=== PATIENT | male | born 1970 | race Caucasian/White ===

== ENCOUNTER 2016-11-16 16:00 | Inpatient (IN) | payer BC ==
[2016-11-16] MEDS ORDERED: SODIUM CHLORIDE 0.9% 1,000 ML IV STA ×2 (16:22→18:06)
[2016-11-16] MEDS ORDERED: DILTIAZEM 125 MG in SODIUM CHLORIDE 0.9% 100 ML IV STA (16:25)
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
[2016-11-16 16:43] LABS: Basophils % (A) 0 %; CH 32.2; CHCM 36.3; Eosinophils # (A) 0.2 k/uL (0-0.7); Eosinophils % (A) 1 %; HCT 44.5 % (39.0-53.0); HDW 2.73; HGB 15.5 gm/dL (13.0-17.5); Luc # (Auto) 0.13; Luc % (Auto) 1; Lymphocytes # (A) 1.5 k/uL (1.0-4.8); Lymphocytes % (A) 14 %; MCH 31.1 pg (25.0-35.0); MCHC 34.9 g/dL (31.0-37.0); MCV 89.2 fL (80.0-100.0); Mean Platelet Volume 7.1; Monocytes # (A) 0.5 k/uL (0-1.0); Monocytes % (A) 5 %; Neutrophils # (A) 8.2 k/uL (1.3-7.7); Neutrophils % (A) 78 %; RDW 14.2 % (11.5-15.5); WBC 10.5 k/uL (3.8-10.6)
[2016-11-16 16:53] LABS: ALT 43 U/L (21-72); AST 33 U/L (17-59); Alcohol <10 mg/dL; Alkaline Phosphatase 63 U/L (38-126); Anion Gap 12 mmol/L; Blood Urea Nitrogen 20 mg/dL (9-20); Calcium 8.7 mg/dL (8.4-10.2); Carbon Dioxide 19 mmol/L (22-30); Chloride 108 mmol/L (98-107); Glucose 87 mg/dL (74-99); Magnesium 1.8 mg/dL (1.6-2.3); Non-African American GFR(MDRD) >60 (>60 ml/min/1.73 sqM); Potassium 3.8 mmol/L (3.5-5.1); Sodium 139 mmol/L (137-145); Total Bilirubin 0.6 mg/dL (0.2-1.3); Total Protein 6.9 g/dL (6.3-8.2)
[2016-11-16 17:04] LABS: Partial Thromboplastin Time 27.5 sec (22.0-30.0); Prothrombin Time 10.1 sec (9.0-12.0)
[2016-11-16 17:11] LABS: Creatine Kinase 553 U/L (55-170)
[2016-11-16] MEDS ORDERED: DILTIAZEM 5 MG/ML 5 ML VIAL IVP STA (17:15)
[2016-11-16 17:24] LABS: Troponin I <0.012 ng/mL (0.000-0.034)
[2016-11-16] MEDS ORDERED: MAGNESIUM SULFATE-D5W PMX 1 GM in DEXTROSE/WATER 1 100ML.BAG IVPB ONE (17:25)
[2016-11-16 17:33] LABS: Creatine Kinase MB 2.7 ng/mL (0.0-2.4)
[2016-11-16] MEDS ORDERED: NALOXONE 0.4 MG/ML 1 ML VIAL IV PRN (18:01)
[2016-11-16] MEDS ORDERED: HEPARIN SODIUM,PORCINE 5,000 UNIT/ML 1 ML VIAL IV ONE (18:04)
[2016-11-16] MEDS ORDERED: NITROGLYCERIN SL TABS 0.4 MG TAB SUBLINGUAL PRN (18:06)
--- NOTE | 2016-11-16 18:10 | XR ---
EXAMINATION TYPE: XR chest 2V DATE OF EXAM: 11/16/2016 COMPARISON: NONE HISTORY: Rapid arrhythmia. TECHNIQUE: Frontal and lateral views of the chest are obtained. FINDINGS: There is no pneumothorax or pleural effusion. There could be a small right lower lobe airs pace opacity. The cardiac silhouette size is within normal limits. The osseous structures are intac t. IMPRESSION: There could be a small right lower lobe airspace opacity. Correlation with physical exam for pneumonia is recommended.
[2016-11-16] MEDS: HEPARIN SODIUM,PORCINE/D5W PMX 25,000 UNIT in DEXTROSE/WATER 1 500ML.BAG IV SCH (18:39)
[2016-11-16] MEDS: 0.9% NACL WITH KCL 20 MEQ/L 1,000 ML IV SCH (20:14)
[2016-11-17] MEDS: HEPARIN SODIUM,PORCINE 5,000 UNIT/ML 1 ML VIAL IV PRN ×2 (00:26→06:33)
--- NOTE | 2016-11-17 10:54 | P.CRDCN ---
History of Present Illness Consult date: 11/17/16 History of present illness: This is a 46-year-old gentleman with history of of borderline hypertension but was never treated, started having palpitation and dizziness at around 10:00 yesterday while he was walking in his backyard. Apparently symptoms resolved partially when he sat down, but recurred later on. Patient was brought to the emergency room. He was also sweating. He was found to be in atrial fibrillation with a rapid ventricular response. Patient was treated with IV heparin and also IV Cardizem. It appears that patient converted to sinus rhyth , last night. Since then patient has been stable. He patient denied any chest pain. No evidence of any pedal swelling. Patient never had previous episodes like this. Denies any diabetes, previous myocardial infarction or strokes Review of Systems REVIEW OF SYSTEMS: CONSTITUTIONAL:. Patient is doing well. No complaints of fever or chills EYES: Denies diplopia, blurring of vision EARS, NOSE, MOUTH, THROAT: Denies headaches, denies sore throat. CARDIOVASCULAR: As per HPI RESPIRATORY: Denies shortness of breath, denies cough. GASTROINTESTINAL: Denies change in appetite, denies abdominal pain, denies diarrhea GENITOURINARY: Denies hematuria, denies infections. MUSKULOSKELETAL: Denies pain, denies swelling. Denies any cramps or claudication INTEGUMENTARY: Denies rash, denies eczema. NEUROLOGICAL: Denies focal weakness, or visual disturbance. Denies any dizziness or syncope PSYCHIATRIC: Denies anxiety, denies depression. HEMATOLOGIC/LYMPHATIC: Denies any bleeding, denies enlarged lymph nodes. Past Medical History Past Medical History: No Reported History History of Any Multi-Drug Resistant Organisms: None Reported Additional Past Surgical History / Comment(s): left knee Past Anesthesia/Blood Transfusion Reactions: No Reported Reaction Past Psychological History: No Psychological Hx Reported Smoking Status: Current some day smoker Past Alcohol Use History: Occasional Additional Past Alcohol Use History / Comment(s): 6 beers a day, more if its a weekend. He states he will sometimes do some shots of liquor. Past Drug Use History: None Reported - Past Family History Mother Family Medical History: Cancer Additional Family Medical History / Comment(s): Lung Medications and Allergies Home Medications Medication Instructions Recorded Confirmed Type No Known Home Medications [No 11/16/16 11/16/16 History Known Home Medications] Allergies Allergy/AdvReac Type Severity Reaction Status Date / Time No Known Allergies Allergy Verified 11/16/16 16:09 Physical Exam Vitals: Vital Signs Temp Pulse Pulse Resp BP BP Pulse Ox 11/17/16 08:00 97.9 F 60 18 134/72 97 11/17/16 04:00 96 F L 58 L 16 104/54 97 11/17/16 01:09 45 L 11/17/16 00:00 96.8 F L 88 16 125/83 97 11/16/16 20:00 97 F L 132 H 18 157/80 100 11/16/16 18:30 131 H 18 132/67 98 11/16/16 17:56 125 H 18 134/73 99 11/16/16 16:40 156 H 18 161/71 98 11/16/16 16:07 98.4 F 178 H 18 170/82 99 Intake and Output 11/16/16 11/17/16 11/17/16 22:59 06:59 14:59 Intake Total 368.583 795.925 240 Balance 368.583 795.925 240 Intake: IV 360 525 0.9% NaCl with KCl 20 Meq 200 400 /l 1,000 ml @ 50 mls/hr IV .Q20H ERIN Rx#: [id number] Heparin Sodium,Porcine/ 160 125 D5w Pmx 25,000 unit In Dextrose/Water 1 500ml. bag @ 10.861 UNITS/KG/HR 20 mls/hr IV .Q24H ERIN Rx #:[id number] Intake, IV Titration 8.583 270.925 Amount Diltiazem 125 mg In 8.583 Sodium Chloride 0.9% 100 ml @ 5 MG/HR 5 mls/hr IV .Q24H STA Rx#:[id number] Heparin Sodium,Porcine/ 270.925 D5w Pmx 25,000 unit In Dextrose/Water 1 500ml. bag @ 10.861 UNITS/KG/HR 20 mls/hr IV .Q24H ERIN Rx #:[id number] Oral 240 Other: Weight 92.079 kg 92.8 kg GENERAL EXAM: Patient is alert and oriented and doesn't appear to be in any acute distress HEENT: Normocephalic. Normal reaction of pupils, equal size, normal range of extraocular motion. No erythema or exudates in the throat. NECK: No masses, no nuchal rigidity. CHEST: No chest wall deformity. LUNGS: Equal air entry with no crackles or wheeze. HEART: S1 and S2 normal with no audible mumurs or gallops. Regular rhythm, femorals equal on both sides.. ABDOMEN: No hepatosplenomegaly, normal bowel sounds, no guarding or rigidity. SKIN: No rashes CENTRAL NERVOUS SYSTEM: No focal deficits. EXTREMITIES: No cyanosis, clubbing or edema. Results 11/16/16 14:30 11/16/16 14:30 Cardiac Enzymes 11/16/16 11/16/16 Range/Units 14:30 14:30 AST 33 (17-59) U/L CK-MB (CK-2) 2.7 H* (0.0-2.4) ng/mL Troponin I <0.012 (0.000-0.034) ng/mL Coagulation 11/16/16 11/16/16 11/17/16 Range/Units 14:30 23:37 05:41 PT 10.1 (9.0-12.0) sec APTT 27.5 29.4 43.2 H (22.0-30.0) sec CBC 11/16/16 Range/Units 14:30 WBC 10.5 (3.8-10.6) k/uL RBC 5.00 (4.30-5.90) m/uL Hgb 15.5 (13.0-17.5) gm/dL Hct 44.5 (39.0-53.0) % Plt Count 254 (150-450) k/uL Comprehensive Metabolic Panel 11/16/16 Range/Units 14:30 Sodium 139 (137-145) mmol/L Potassium 3.8 (3.5-5.1) mmol/L Chloride 108 H (98-107) mmol/L Carbon Dioxide 19 L (22-30) mmol/L BUN 20 (9-20) mg/dL Creatinine 1.18 (0.66-1.25) mg/dL Glucose 87 (74-99) mg/dL Calcium 8.7 (8.4-10.2) mg/dL AST 33 (17-59) U/L ALT 43 (21-72) U/L Alkaline Phosphatase 63 (38-126) U/L Total Protein 6.9 (6.3-8.2) g/dL Albumin 4.1 (3.5-5.0) g/dL Current Medications Generic Name Dose Route Start Last Admin Trade Name [place] PRN Reason Stop Dose Admin Heparin Sodium (Porcine) 0 unit 11/17/16 00:11 11/17/16 06:33 Heparin IV 2,000 unit PER PROTOCOL PRN Administration Low PTT Protocol Diltiazem HCl 125 mg/ Sodium 125 mls @ 5 mls/hr 11/16/16 16:25 11/16/16 18:20 Chloride IV 11/17/16 16:24 10 mg/hr .Q24H STA 10 mls/hr Protocol Titration 5 MG/HR Potassium Chloride/Sodium Chloride 1,000 mls @ 50 mls/hr 11/16/16 18:15 11/16 20:14 Ns-Kcl 20 Meq/L Iv Solution IV 50 mls/hr .Q20H ERIN Administration Heparin Sodium/Dextrose 25,000 500 mls @ 20 mls/hr 11/16/16 18:15 11/17/16 06 :28 unit/ IV Solution IV 15.861 units/kg/hr .Q24H ERIN 29.2 mls/hr Protocol Titration 10.861 UNITS/KG/HR Metoprolol Tartrate 12.5 mg 11/17/16 11:00 Lopressor PO BID ERIN Naloxone HCl 0.2 mg 11/16/16 18:01 Narcan IV Q2M PRN Opioid Reversal Nitroglycerin 0.4 mg 11/16/16 18:06 Nitrostat SUBLINGUAL Q5M PRN Chest Pain Intake and Output 11/16/16 11/17/16 11/17/16 22:59 06:59 14:59 Intake Total 368.583 795.925 240 Balance 368.583 795.925 240 Intake: IV 360 525 0.9% NaCl with KCl 20 Meq 200 400 /l 1,000 ml @ 50 mls/hr IV .Q20H ERIN Rx#: [id number] Heparin Sodium,Porcine/ 160 125 D5w Pmx 25,000 unit In Dextrose/Water 1 500ml. bag @ 10.861 UNITS/KG/HR 20 mls/hr IV .Q24H ERIN Rx #:[id number] Intake, IV Titration 8.583 270.925 Amount Diltiazem 125 mg In 8.583 Sodium Chloride 0.9% 100 ml @ 5 MG/HR 5 mls/hr IV .Q24H STA Rx#:[id number] Heparin Sodium,Porcine/ 270.925 D5w Pmx 25,000 unit In Dextrose/Water 1 500ml. bag @ 10.861 UNITS/KG/HR 20 mls/hr IV .Q24H ERIN Rx #:[id number] Oral 240 Other: Weight 92.079 kg 92.8 kg 11/16/16 14:30 11/16/16 14:30 EKG Interpretations (text) Initial EKG showed A. fib with a rapid ventricular response. Sinus rhythm Assessment and Plan (1) Persistent atrial fibrillation Status: Acute (2) Borderline hypertension Status: Acute Plan: I'll start him on small dose of beta romeo. We will get an echocardiogram tomorrow. If echo looks normal, we'll can discontinue heparin. I will start him on baby aspirin.
[2016-11-17] MEDS: METOPROLOL TARTRATE 12.5 MG TAB PO SCH ×2 (11:30→20:07)
--- NOTE | 2016-11-17 14:08 | P.HPIM ---
History of Present Illness H&P Date: 11/17/16 Chief Complaint: Palpitations and syncope This is a 46-year-old gentleman with history of borderline hypertension comes in the hospital with syncope and palpitations. Patient was noted to be in new onset atrial fibrillation with rapid ventricular rate Patient apparently has been working outside in the sun for the last 7 days and has not been hydrating himself appropriately Patient states that his alcohol intake over the last few days have been unusually high patient has been preparing for this Patient denies having any associated chest pain previous history of palpitations. Patient does not take any medications at this time At the time of my evaluation patient denies having any headaches blurry vision nausea vomiting history of any bleeding disorders Past Medical History Past Medical History: No Reported History History of Any Multi-Drug Resistant Organisms: None Reported Additional Past Surgical History / Comment(s): left knee Past Anesthesia/Blood Transfusion Reactions: No Reported Reaction Past Psychological History: No Psychological Hx Reported Smoking Status: Current some day smoker Past Alcohol Use History: Occasional Additional Past Alcohol Use History / Comment(s): 6 beers a day, more if its a weekend. He states he will sometimes do some shots of liquor. Past Drug Use History: None Reported - Past Family History Mother Family Medical History: Cancer Additional Family Medical History / Comment(s): Lung Medications and Allergies Home Medications Medication Instructions Recorded Confirmed Type No Known Home Medications [No 11/16/16 11/16/16 History Known Home Medications] Allergies Allergy/AdvReac Type Severity Reaction Status Date / Time No Known Allergies Allergy Verified 11/16/16 16:09 Physical Exam Vitals: Vital Signs Temp Pulse Pulse Resp BP BP Pulse Ox 11/17/16 12:00 98.3 F 58 L 16 130/70 98 11/17/16 08:00 97.9 F 60 18 134/72 97 11/17/16 04:00 96 F L 58 L 16 104/54 97 11/17/16 01:09 45 L 11/17/16 00:00 96.8 F L 88 16 125/83 97 11/16/16 20:00 97 F L 132 H 18 157/80 100 11/16/16 18:30 131 H 18 132/67 98 11/16/16 17:56 125 H 18 134/73 99 11/16/16 16:40 156 H 18 161/71 98 11/16/16 16:07 98.4 F 178 H 18 170/82 99 Intake and Output 11/16/16 11/17/16 11/17/16 22:59 06:59 14:59 Intake Total 368.583 795.925 758.607 Balance 368.583 795.925 758.607 Intake: IV 360 525 0.9% NaCl with KCl 20 Meq 200 400 /l 1,000 ml @ 50 mls/hr IV .Q20H ERIN Rx#: [id number] Heparin Sodium,Porcine/ 160 125 D5w Pmx 25,000 unit In Dextrose/Water 1 500ml. bag @ 10.861 UNITS/KG/HR 20 mls/hr IV .Q24H ERIN Rx #:[id number] Intake, IV Titration 8.583 270.925 178.607 Amount Diltiazem 125 mg In 8.583 Sodium Chloride 0.9% 100 ml @ 5 MG/HR 5 mls/hr IV .Q24H STA Rx#:[id number] Heparin Sodium,Porcine/ 270.925 178.607 D5w Pmx 25,000 unit In Dextrose/Water 1 500ml. bag @ 10.861 UNITS/KG/HR 20 mls/hr IV .Q24H ERIN Rx #:[id number] Oral 580 Other: Weight 92.079 kg 92.8 kg Physical exam Gen. appearance oriented 3 in no distress Neck is supple no JVD Lungs good air entry clear to auscultation no rhonchi or wheezing Heart S1-S2 heard regular rate and rhythm no murmurs appreciated Abdomen is soft nontender no organomegaly bowel sounds are intact Neurologically cranial nerves II-12 grossly intact no focal motor or sensory deficits noted Skin no abnormalities appreciated Results CBC & Chem 7: 11/16/16 14:30 11/16/16 14:30 Labs: Abnormal Lab Results - Last 24 Hours (Table) 11/16/16 11/16/16 11/16/16 Range/Units 14:30 14:30 14:30 Neutrophils # 8.2 H (1.3-7.7) k/uL APTT (22.0-30.0) sec Chloride 108 H (98-107) mmol/L Carbon Dioxide 19 L (22-30) mmol/L Total Creatine Kinase 553 H (55-170) U/L CK-MB (CK-2) 2.7 H* (0.0-2.4) ng/mL 11/17/16 11/17/16 Range/Units 05:41 12:11 Neutrophils # (1.3-7.7) k/uL APTT 43.2 H 43.9 H (22.0-30.0) sec Chloride (98-107) mmol/L Carbon Dioxide (22-30) mmol/L Total Creatine Kinase (55-170) U/L CK-MB (CK-2) (0.0-2.4) ng/mL Thrombosis Risk Factor Assmnt - Choose All That Apply Any of the Below Risk Factors Present?: Yes Each Factor Represents 1 point: Age 41-60 years, Obesity (BMI >25) Thrombosis Risk Factor Assessment Total Risk Factor Score: 2 Thrombosis Risk Factor Assessment Level: Low Risk Assessment and Plan Plan: new onset atrial fib relation with rapid ventricular rate present onset #2 borderline hypertension Plan Risk stratification with [facility] echocardiogram tomorrow Heparinization at this time Cardiology recommendations are noted Beta romeo for rate control
[2016-11-17] MEDS: 0.9% NACL WITH KCL 20 MEQ/L 1,000 ML IV SCH ×2 (16:36→20:09)
[2016-11-17] MEDS: HEPARIN SODIUM,PORCINE/D5W PMX 25,000 UNIT in DEXTROSE/WATER 1 500ML.BAG IV SCH (16:38)
[2016-11-18] MEDS: HEPARIN SODIUM,PORCINE/D5W PMX 25,000 UNIT in DEXTROSE/WATER 1 500ML.BAG IV SCH (02:14)
[2016-11-18 03:11] VITALS: RESP 18
[2016-11-18] MEDS: METOPROLOL TARTRATE 12.5 MG TAB PO SCH (07:55)
--- NOTE | 2016-11-18 10:41 | ECHOF ---
Referral Reason:Chest pain and cardiomyopathy MEASUREMENTS -------- HEIGHT: 177.8 cm WEIGHT: 93.9 kg BP: 128/82 RVIDd: 3.3 cm (< 3.3) IVSd: 1.1 cm (0.6 - 1.1) LVIDd: 5.0 cm (3.9 - 5.3) LVPWd: 1.1 cm (0.6 - 1.1) IVSs: 1.5 cm LVIDs: 3.2 cm LVPWs: 1.4 cm LA Diam: 3.6 cm (2.7 - 3.8) LAESV Index (A-L): 23.22 ml/m Ao Diam: 2.6 cm (2.0 - 3.7) AV Cusp: 2.0 cm (1.5 - 2.6) MV EXCURSION: 10.738 mm (> 18.000) MV EF SLOPE: 71 mm/s (70 - 150) EPSS: 0.6 cm MV E Addison: 1.15 m/s MV DecT: 198 ms MV A Addison: 1.00 m/s MV E/A Ratio: 1.15 FINDINGS -------- Sinus rhythm. This was a technically good study. The left ventricular size is normal. There is borderline concentric left ventricular hypertrophy. Overall left ventricular systolic function is normal with, an EF between 60 - 65 %. The right ventricle is mildly enlarged. Normal LA size by volume 22+/-6 ml/m2. The right atrium is normal in size. The aortic valve is trileaflet, and appears structurally normal. No aortic stenosis or regurgitation. There is trace mitral regurgitation. Trace tricuspid regurgitation present. The pulmonic valve was not well visualized. The aortic root size is normal. Normal inferior vena cava with normal inspiratory collapse consistent with estimated right atrial pressure of 5 mmHg. There is no pericardial effusion. CONCLUSIONS -------- 1. Sinus rhythm. 2. Trace tricuspid regurgitation present. 3. The pulmonic valve was not well visualized. 4. The aortic root size is normal. 5. Normal inferior vena cava with normal inspiratory collapse consistent with estimated right atrial pressure of 5 mmHg. 6. There is no pericardial effusion. 7. This was a technically good study. 8. The left ventricular size is normal. 9. There is borderline concentric left ventricular hypertrophy. 10. Overall left ventricular systolic function is normal with, an EF between 60 - 65 %. 11. The right ventricle is mildly enlarged. 12. Normal LA size by volume 22+/-6 ml/m2. 13. The aortic valve is trileaflet, and appears structurally normal. No aortic stenosis or regurgitation. 14. There is trace mitral regurgitation. [employer] SUPERVISOR: Melania Potter RDCS
[2016-11-18 11:29] VITALS: BP 119/72; PULSE 59; TEMP 97.9
--- NOTE | 2016-11-18 11:29 | P.DS ---
Providers Date of admission: 11/16/16 18:02 Attending physician: Yosef Hannon Consults: 11/16/16 18:03 Consult Physician Routine Consulting Provider: Thalia Weiss Consult Reason/Comments: Rapid atrial fibrillation Do you want consulting provider notified?: Yes Primary care physician: Physician Nonstaff Hospital Course: This is a 46-year-old gentleman with history of borderline hypertension comes in the hospital with syncope and palpitations. Patient was noted to be in new onset atrial fibrillation with rapid ventricular rate Patient apparently has been working outside in the sun for the last 7 days and has not been hydrating himself appropriately Patient states that his alcohol intake over the last few days have been unusually high patient has been preparing for this Patient denies having any associated chest pain previous history of palpitations. Patient does not take any medications at this time At the time of my evaluation patient denies having any headaches blurry vision nausea vomiting history of any bleeding disorders 11/18/2001 Patient is doing well Denies having a palpitation dizziness nausea vomiting diarrhea chest pain Physical exam Gen. appearance oriented 3 in no distress Neck is supple no JVD Lungs good air entry clear to auscultation no rhonchi or wheezing Heart S1-S2 heard regular rate and rhythm no murmurs appreciated Abdomen is soft nontender no organomegaly bowel sounds are intact Neurologically cranial nerves II-12 grossly intact no focal motor or sensory deficits noted Skin no abnormalities appreciated Assessment and Plan Plan: new onset atrial fib relation with rapid ventricular rate present onset #2 Pre HTN Plan Risk stratification with CHADSVASC 0 or 1 if we count HTN echo shows diastolic dysfunction stroke prevention Aspirin 325mg dialy dc home to follow up with Dr Forbes Patient Condition at Discharge: Stable Plan - Discharge Summary New Discharge Prescriptions: New Aspirin 325 mg PO DAILY #30 tab Metoprolol Tartrate [Lopressor] 12.5 mg PO BID #60 tab Discharge Medication List Aspirin 325 mg PO DAILY #30 tab 11/18/16 [Rx] Metoprolol Tartrate [Lopressor] 12.5 mg PO BID #60 tab 11/18/16 [Rx] Follow up Appointment(s)/Referral(s): Nonstaff,Physician [Primary Care Provider] - 1-2 days Thalia Weiss MD [STAFF PHYSICIAN] - 12/06/16 11:15 am Patient Instructions/Handouts: Atrial Fibrillation (DC) Discharge Disposition: HOME SELF-CARE
--- NOTE | 2016-11-18 12:31 | P.PN ---
Subjective Principal diagnosis: Dizziness This is a 46-year-old gentleman with history of of borderline hypertension but was never treated, started having palpitation and dizziness at around 10:00 yesterday while he was walking in his backyard. Apparently symptoms resolved partially when he sat down, but recurred later on. Patient was brought to the emergency room. He was also sweating. He was found to be in atrial fibrillation with a rapid ventricular response. Patient was treated with IV heparin and also IV Cardizem. Patient converted to normal sinus rhythm and remains in normal sinus rhythm this morning. Since then patient has been stable. He patient denied any chest pain. No evidence of any pedal swelling. Patient never had previous episodes like this. Denies any diabetes, previous myocardial infarction or strokes. Echocardiogram with Doppler study was performed which revealed normal left ventricular systolic function. Objective - Vital Signs Vital signs: Vital Signs Temp 97.9 F 11/18/16 11:29 Pulse 59 L 11/18/16 11:29 Resp 18 11/18/16 11:29 BP 119/72 11/18/16 11:29 Pulse Ox 98 11/18/16 11:29 Intake & Output 11/17/16 11/18/16 11/18/16 18:59 06:59 18:59 Intake Total 9748.050 8676.685 355 Output Total 500 Balance 835.235 2795.685 355 Weight 94.3 kg Intake: IV 700 0.9% NaCl with KCl 20 Meq 540 /l 1,000 ml @ 50 mls/hr IV .Q20H ERIN Rx#: [id number] Heparin Sodium,Porcine/ 160 D5w Pmx 25,000 unit In Dextrose/Water 1 500ml. bag @ 10.861 UNITS/KG/HR 20 mls/hr IV .Q24H ERIN Rx #:[id number] Intake, IV Titration 229.075 338.685 Amount Heparin Sodium,Porcine/ 229.075 338.685 D5w Pmx 25,000 unit In Dextrose/Water 1 500ml. bag @ 10.861 UNITS/KG/HR 20 mls/hr IV .Q24H ERIN Rx #:[id number] Oral 820 920 355 Output: Urine 500 Other: Voiding Method Toilet # Voids 2 - Exam PHYSICAL EXAMINATION: HEENT: Head is atraumatic, normocephalic. Pupils equal, round. Neck is supple. There is no elevated jugular venous pressure. HEART EXAMINATION: Heart S1, S2 normal. No murmur or gallop heard. CHEST EXAMINATION: Lungs are clear to auscultation and precussion. No chest wall tenderness is noted on palpation or with deep breathing. ABDOMEN: Soft, nontender. Bowel sounds are heard. No organomegaly noted. EXTREMITIES: 2+ peripheral pulses with no evidence of peripheral edema and no calf tenderness noted. NEUROLOGIC patient is awake, alert and oriented -3. . - Labs CBC & Chem 7: 11/16/16 14:30 11/16/16 14:30 Labs: Abnormal Lab Results - Last 24 Hours (Table) 11/17/16 11/17/16 11/18/16 Range/Units 12:11 19:24 02:53 APTT 43.9 H 43.9 H 63.7 H (22.0-30.0) sec Assessment and Plan (1) Paroxysmal a-fib Status: Acute (2) EtOH dependence Status: Acute (3) Borderline hypertension Status: Acute Plan: From cardiology's perspective, patient may be able to be discharged home today. He will be discharged home on beta romeo along with aspirin. A follow-up appointment will be made with Dr. Weiss in the office in one to 2 weeks. He has been advised regarding the importance of EtOH cessation. DNP note has been reviewed, I agree with a documented findings and plan of care. Patient was seen and examined.
== END 2016-11-18 12:57 | disposition home or self-care (01) | DRG 310 ==
LOC: EC 16:00 → 6SEL 18:02
PROVIDERS: ADMIT Internal Medicine; ATTEND Internal Medicine
DX: I48.1 Persistent atrial fibrillation (principal); F10.20 Alcohol dependence, uncomplicated; I48.0 Paroxysmal atrial fibrillation; F17.200 Nicotine dependence, unspecified, uncomplicated; R03.0 Elevated blood-pressure reading, without diagnosis of hypertension
CPT/HCPCS: 36415; 71020; 80053; 80320; 82550; 82553; 83735; 84484; 85025; 85379; 85610; 85730; 93005; 93306; 96365; 96366; 96367; 96376; 99291

== ENCOUNTER 2017-04-29 18:14 | Emergency (ER) | payer BC ==
[2017-04-29 18:19] VITALS: TEMP 98.2
[2017-04-29] MEDS ORDERED: SODIUM CHLORIDE 0.9% 500 ML IV STA (19:54)
--- NOTE | 2017-04-29 20:06 | ED ---
General Adult HPI - General Chief complaint: Chest Pain Stated complaint: Chest pain Time Seen by Provider: 04/29/17 18:15 Source: patient, RN notes reviewed Mode of arrival: wheelchair Limitations: no limitations - History of Present Illness Initial comments: This is a 47-year-old male who presents emergency department stating that he has had a history of atrial fib. Patient states since he had the first time he was put on metoprolol twice a day at a dose of 12.5 mg. Patient states occasionally he gets a little flutter in her chest that lasts no more than 10- 15 seconds. Patient states today however he had an episode that lasted for a few minutes so he took it metoprolol early and then drove himself to the hospital. Patient states bedtime reactive hospital his symptoms had completely resolved. Patient states at no time was he short of breath have any difficulty breathing. Patient denies any lightheadedness or dizziness. Patient denies any diaphoretic episodes. Patient denies any nausea vomiting. Patient denies any extra intake of alcohol or caffeine today. Patient denies any abdominal pain. Patient denies any recent fever or chills. Patient denies any leg swelling or calf pain. - Related Data Home Medications Medication Instructions Recorded Confirmed Aspirin EC [Ecotrin] 325 mg PO DAILY 04/29/17 04/29/17 Metoprolol Tartrate [Lopressor] 12.5 mg PO BID 04/29/17 04/29/17 Allergies Allergy/AdvReac Type Severity Reaction Status Date / Time No Known Allergies Allergy Verified 04/29/17 20:02 Review of Systems ROS Statement: Those systems with pertinent positive or pertinent negative responses have been documented in the HPI. ROS Other: All systems not noted in ROS Statement are negative. Past Medical History Past Medical History: Atrial Fibrillation History of Any Multi-Drug Resistant Organisms: None Reported Past Surgical History: Orthopedic Surgery Additional Past Surgical History / Comment(s): left knee Past Anesthesia/Blood Transfusion Reactions: No Reported Reaction Past Psychological History: No Psychological Hx Reported Smoking Status: Current some day smoker Past Alcohol Use History: Occasional Past Drug Use History: None Reported - Past Family History Mother Family Medical History: Cancer Additional Family Medical History / Comment(s): Lung General Exam - General Exam Comments Initial Comments: GENERAL: Patient is well-developed and well-nourished. Patient is nontoxic and well- hydrated and is in mild distress. ENT: Neck is soft and supple. No significant lymphadenopathy is noted. Oropharynx is clear. Moist mucous membranes. Neck has full range of motion without eliciting any pain. EYES: The sclera were anicteric and conjunctiva were pink and moist. Extraocular movements were intact and pupils were equal round and reactive to light. Eyelids were unremarkable. PULMONARY: Unlabored respirations. Good breath sounds bilaterally. No audible rales rhonchi or wheezing was noted. CARDIOVASCULAR: There is a regular rate and rhythm without any murmurs gallops or rubs. ABDOMEN: Soft and nontender with normal bowel sounds. SKIN: Skin is clear with no lesions or rashes and otherwise unremarkable. NEUROLOGIC: Patient is alert and oriented x3. Cranial nerves II through XII are grossly intact. Motor and sensory are also intact. Normal speech, volume and content. Symmetrical smile. MUSCULOSKELETAL: Normal extremities with adequate strength and full range of motion. No lower extremity swelling or edema. No calf tenderness. LYMPHATICS: No significant lymphadenopathy is noted PSYCHIATRIC: Normal psychiatric evaluation. Normal interpersonal interactions appears functionally intact in deals appropriately with others. No signs of depression. No signs of anxiety Limitations: no limitations Course Vital Signs 04/29/17 18:16 Temperature 98.2 F Pulse Rate 78 Respiratory 18 Rate Blood Pressure 178/91 O2 Sat by Pulse 98 Oximetry Medical Decision Making - Medical Decision Making EKG shows normal sinus rhythm at 81 bpm IA interval is 136 QRS is 72 QT interval 360 QTC is 427. Patient's EKG shows no ST segment elevation or depression or T wave abnormalities are noted. Patient no symptoms well in the emergency department. - Lab Data Result diagrams: 04/29/17 20:00 04/29/17 20:00 Lab Results 04/29/17 04/29/17 04/29/17 Range/Units 20:00 20:00 20:00 WBC 9.3 (3.8-10.6) k/uL RBC 5.26 (4.30-5.90) m/uL Hgb 15.9 (13.0-17.5) gm/dL Hct 48.2 (39.0-53.0) % MCV 91.6 (80.0-100.0) fL MCH 30.3 (25.0-35.0) pg MCHC 33.0 (31.0-37.0) g/dL RDW 14.5 (11.5-15.5) % Plt Count 265 (150-450) k/uL Neutrophils % 58 % Lymphocytes % 32 % Monocytes % 5 % Eosinophils % 3 % Basophils % 1 % Neutrophils # 5.4 (1.3-7.7) k/uL Lymphocytes # 3.0 (1.0-4.8) k/uL Monocytes # 0.5 (0-1.0) k/uL Eosinophils # 0.3 (0-0.7) k/uL Basophils # 0.1 (0-0.2) k/uL PT (9.0-12.0) sec INR (<1.2) APTT (22.0-30.0) sec Sodium 143 (137-145) mmol/L Potassium 4.4 (3.5-5.1) mmol/L Chloride 104 (98-107) mmol/L Carbon Dioxide 26 (22-30) mmol/L Anion Gap 13 mmol/L BUN 24 H (9-20) mg/dL Creatinine 1.20 (0.66-1.25) mg/dL Est GFR (MDRD) Af Amer >60 (>60 ml/min/1.73 sqM) Est GFR (MDRD) Non-Af >60 (>60 ml/min/1.73 sqM) Glucose 104 H (74-99) mg/dL Calcium 9.7 (8.4-10.2) mg/dL Magnesium 2.0 (1.6-2.3) mg/dL Total Bilirubin 0.4 (0.2-1.3) mg/dL AST 37 (17-59) U/L ALT 55 (21-72) U/L Alkaline Phosphatase 61 (38-126) U/L Total Creatine Kinase 196 H (55-170) U/L CK-MB (CK-2) 1.1 (0.0-2.4) ng/mL CK-MB (CK-2) Rel Index 0.6 Troponin I 0.020 (0.000-0.034) ng/mL Total Protein 7.9 (6.3-8.2) g/dL Albumin 4.5 (3.5-5.0) g/dL TSH 3.790 (0.465-4.680) mIU/L 04/29/17 Range/Units 20:00 WBC (3.8-10.6) k/uL RBC (4.30-5.90) m/uL Hgb (13.0-17.5) gm/dL Hct (39.0-53.0) % MCV (80.0-100.0) fL MCH (25.0-35.0) pg MCHC (31.0-37.0) g/dL RDW (11.5-15.5) % Plt Count (150-450) k/uL Neutrophils % % Lymphocytes % % Monocytes % % Eosinophils % % Basophils % % Neutrophils # (1.3-7.7) k/uL Lymphocytes # (1.0-4.8) k/uL Monocytes # (0-1.0) k/uL Eosinophils # (0-0.7) k/uL Basophils # (0-0.2) k/uL PT 9.5 (9.0-12.0) sec INR 1.0 (<1.2) APTT 28.9 (22.0-30.0) sec Sodium (137-145) mmol/L Potassium (3.5-5.1) mmol/L Chloride (98-107) mmol/L Carbon Dioxide (22-30) mmol/L Anion Gap mmol/L BUN (9-20) mg/dL Creatinine (0.66-1.25) mg/dL Est GFR (MDRD) Af Amer (>60 ml/min/1.73 sqM) Est GFR (MDRD) Non-Af (>60 ml/min/1.73 sqM) Glucose (74-99) mg/dL Calcium (8.4-10.2) mg/dL Magnesium (1.6-2.3) mg/dL Total Bilirubin (0.2-1.3) mg/dL AST (17-59) U/L ALT (21-72) U/L Alkaline Phosphatase (38-126) U/L Total Creatine Kinase (55-170) U/L CK-MB (CK-2) (0.0-2.4) ng/mL CK-MB (CK-2) Rel Index Troponin I (0.000-0.034) ng/mL Total Protein (6.3-8.2) g/dL Albumin (3.5-5.0) g/dL TSH (0.465-4.680) mIU/L Disposition Clinical Impression: Palpitations Disposition: HOME SELF-CARE Condition: Good Additional Instructions: Patient should follow-up with his grants specialist. In the meantime patient should take an extra pill midday until he follows up. Referrals: Nonstaff,Physician [REFERRING] - 1-2 days Time of Disposition: 21:10
[2017-04-29 20:28] LABS: Basophils # (A) 0.1 k/uL (0-0.2); Basophils % (A) 1 %; Eosinophils # (A) 0.3 k/uL (0-0.7); Eosinophils % (A) 3 %; HCT 48.2 % (39.0-53.0); HGB 15.9 gm/dL (13.0-17.5); Lymphocytes % (A) 32 %; MCH 30.3 pg (25.0-35.0); MCV 91.6 fL (80.0-100.0); Mean Platelet Volume 7.1; Monocytes # (A) 0.5 k/uL (0-1.0); Monocytes % (A) 5 %; Neutrophils # (A) 5.4 k/uL (1.3-7.7); Neutrophils % (A) 58 %; Platelet Count 265 k/uL (150-450); RBC 5.26 m/uL (4.30-5.90); RDW 14.5 % (11.5-15.5); WBC 9.3 k/uL (3.8-10.6)
[2017-04-29 20:31] LABS: ALT 55 U/L (21-72); AST 37 U/L (17-59); Albumin 4.5 g/dL (3.5-5.0); Alkaline Phosphatase 61 U/L (38-126); Anion Gap 13 mmol/L; Blood Urea Nitrogen 24 mg/dL (9-20); Calcium 9.7 mg/dL (8.4-10.2); Carbon Dioxide 26 mmol/L (22-30); Chloride 104 mmol/L (98-107); Glucose 104 mg/dL (74-99); Potassium 4.4 mmol/L (3.5-5.1); Sodium 143 mmol/L (137-145); Total Bilirubin 0.4 mg/dL (0.2-1.3); Total Protein 7.9 g/dL (6.3-8.2)
[2017-04-29 20:32] LABS: Partial Thromboplastin Time 28.9 sec (22.0-30.0); Prothrombin Time 9.5 sec (9.0-12.0)
--- NOTE | 2017-04-29 20:33 | XR ---
EXAMINATION: XR chest 2V DATE AND TIME: 04/29/2017 8:12 PM ORDERING PROVIDER: Mir Monae MD CLINICAL INDICATION: dysrhythmia TECHNIQUE: PA and lateral COMPARISON: 11/16/2016 DESCRIPTION: EKG leads. The lungs are clear. The pleural spaces are negative. The cardiac silhouette is not enlarged. The skeletal structures are intact without focal findings. The soft tissues are unre markable. IMPRESSION: NO ACUTE PROCESS.
[2017-04-29 20:48] LABS: Creatine Kinase MB 1.1 ng/mL (0.0-2.4); Troponin I 0.02 ng/mL (0.000-0.034)
[2017-04-29 21:33] VITALS: RESP 16
[2017-04-29 21:35] VITALS: BP 134/78; PULSE 66
== END 2017-04-29 21:30 | disposition home or self-care (01) ==
LOC: EC 18:14
DX: R00.2 Palpitations (principal); R07.9 Chest pain, unspecified; I48.91 Unspecified atrial fibrillation; F17.200 Nicotine dependence, unspecified, uncomplicated; Z79.82 Long term (current) use of aspirin; Z79.899 Other long term (current) drug therapy
CPT/HCPCS: 36415; 71046; 80053; 82550; 82553; 83735; 84443; 84484; 85025; 85610; 85730; 93005; 96360; 99285

== ENCOUNTER → 2020-10-31 | Outpatient (CLI) | payer OTHER, BC ==
--- NOTE | 2020-10-31 18:53 | CONS ---
CONSULTATION REASON FOR CONSULTATION: Sleep apnea. Wilmer is 50 and the patient was referred to me for evaluation of obstructive sleep apnea. His has noted the patient snores loud and he quits breathing on multiple occasions. The patient lives in [place] and he drives back and forth to [place] and at times he has to pull on the side of the road to take a nap and get himself refreshed. He has not been involved in a motor vehicle accident because of feeling drowsy or sleepy. His functionality at work is good. Nevertheless after he arrives home, he takes naps. He was drinking up to 18 beers on a weekly basis and he cut down on his drinking. He is trying to lose weight. He is going to bed around 10 p.m., waking up 5:30 am in the morning. No nocturia. His blood pressure is under good adequate control and the patient is taking two different blood pressure medications. No sleep paralysis. No hallucinations. No cataplexy. He wakes up at least 3-4 times in the middle of the night for choking and gasping. PAST MEDICAL HISTORY: Hypertension. PAST SURGICAL HISTORY: Left knee arthroscopy. DRUG ALLERGIES: NOT KNOWN. OUTPATIENT MEDICATIONS: Includes lisinopril and metoprolol. SOCIAL HISTORY: The patient is a nonsmoker. He was drinking alcohol around 18 pack beer on a day weekly basis. Currently he is cutting down his alcohol drinking. No history of substance abuse. No history of IV drugs. 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 He is able to function adequately, although he feels tired and during lunch breaks he takes naps. FAMILY HISTORY: Negative for sleep apnea. Mother from complications of lung cancer. Father is healthy. REVIEW OF SYSTEMS: Fourteen-point review of system was done. Positive findings are mentioned in history of present illness. PHYSICAL EXAMINATION: BP is 146/85, pulse 67, respirations 16, temperature 97.1, saturation 99% on room air. BMI 31. Height is 5 feet 9 inches. Weight is 212. [place] score is at 5. Neck size 17-1/4 of an inch. GENERAL APPEARANCE: Calm, comfortable. HEAD is atraumatic, normocephalic. NECK: Supple. There is no JVD. No goiter or neck mass. Mallampati class 4. LUNGS: Diminished, otherwise clear. HEART: Heart sounds are regular rate and rhythm. Normal S1, S2. No S3, S4. No murmurs. ABDOMEN: Soft, nontender. No organomegaly. EXTREMITIES: No edema, no cyanosis or clubbing. NEUROLOGIC: Awake and alert. There is no focal neurological deficit. IMPRESSION: 1. Hypersomnia with high suspicion for obstructive sleep apnea. This patient needs further investigation. He has loud snoring, witnessed apneas along with chronic hypersomnia and sleepiness. 2. Hypertension. 3. Obesity with a BMI of 31. PLAN: 1. Proceed with a home sleep study with a high clinical suspicion for obstructive sleep apnea. 2. Encourage weight loss. 3. Avoid and eliminate alcohol drinking at least 3-4 hours prior to the sleep. 4. Implement good sleep hygiene measures. 5. Do not drive especially when feeling drowsy or sleepy, to avoid any potential life- threatening motor vehicle accidents. 6. We will continue to follow and make further recommendations based on the results of the home sleep study. CHITO / BEVN: [id number] /
== END ==
LOC: SLEEP 15:04
PROVIDERS: ATTEND Internal Medicine Critical Care Medicine
DX: G47.10 Hypersomnia, unspecified (principal); I10 Essential (primary) hypertension; E66.9 Obesity, unspecified; Z68.31 Body mass index [BMI] 31.0-31.9, adult
CPT/HCPCS: 99202

== ENCOUNTER → 2021-05-08 | Outpatient (CLI) | payer BC, OTHER ==
--- NOTE | 2021-05-08 19:06 | PN ---
PROGRESS NOTE This patient is coming in for a followup regarding obstructive sleep apnea. The patient was diagnosed having severe YUDY and the patient carries an AHI of 55. The patient is currently using a CPAP at the pressure of 8 cm of water. He is benefitting from the treatment. He is using an AirFit P10 nose pillow and on today's evaluation I offered the alternative of a DreamWear nose pillow. In general, treatment has been successful and the patient has been averaging 4.7 hours of CPAP use per night. He has used his machine 26 out of the past 30 days and he has achieved 4 hours of CPAP use approximately 50% of the time. Leak is on order of 1 L/minute and his AHI is down to 1.5. As such, treatment has been essentially successful, although there is more room for improvement. The patient can increase the number of hours of CPAP use per night. He is benefitting from the treatment for now. [place] score is down to 5. REVIEW OF SYSTEMS: Fourteen-point review of systems was done. Positive findings are all mentioned above in the history of present illness. PHYSICAL EXAMINATION: VITAL SIGNS: BP is 148/78, pulse 69, respirations 16, temperature 97.1, weight 218. [place] score is 5. Saturation 98% on room air. GENERAL APPEARANCE: Calm, comfortable. HEAD: Atraumatic, normocephalic. Neck is supple. No JVD. No goiter or neck masses. Mallampati class IV. LUNGS: Clear to auscultation. Heart sounds are regular rate and rhythm. Normal S1, S2. No S3, S4. No murmurs. ABDOMEN: Soft, nontender. No organomegaly. EXTREMITIES: No edema. No cyanosis or clubbing. NEUROLOGIC: Awake and alert. There is no focal neurological deficit. IMPRESSION: 1. Obstructive sleep apnea, severe; AHI of 55. Currently on CPAP therapy at a pressure of 8 cm of water. 2. Hypersomnia, improved. PLAN: 1. Encourage using the CPAP machine for a longer number of hours. The patient needs to achieve more than 4 hours 70% of the time. 2. Offer the patient a DreamWear nose mask which could potentially improve his compliancy. 3. Encourage weight loss. 4. Continue with CPAP therapy. See me back in a year's time. Treatment in general is successful, although there is some more room for improvement in his overall compliance and average usage. MMODL / IJN: [id number] /
== END ==
LOC: SLEEP 14:24
PROVIDERS: ATTEND Internal Medicine Critical Care Medicine
DX: G47.33 Obstructive sleep apnea (adult) (pediatric) (principal); F17.200 Nicotine dependence, unspecified, uncomplicated; Z99.89 Dependence on other enabling machines and devices